=== PATIENT | male | born 1980 | race Caucasian/White ===

== ENCOUNTER 2019-01-03 12:20 | Emergency (ER) | payer SELFPAY ==
[~2019-01-03] VITALS: Ht 180.3 cm; Wt 104.0 kg
[2019-01-03 12:30] VITALS: BP 166/110
[2019-01-03] MEDS ORDERED: PENI500T2 PO (13:16)
== END 2019-01-03 13:32 | disposition home or self-care (01) ==
LOC: ER 12:20
DX: K08.89 Other specified disorders of teeth and supporting structures (principal); F17.200 Nicotine dependence, unspecified, uncomplicated; Z79.2 Long term (current) use of antibiotics
CPT/HCPCS: 99283